=== PATIENT | female | born 1970 | race Asian ===

== ENCOUNTER 2017-11-14 19:45 | Emergency (ER) | payer BC, OTHER ==
[2017-11-14] MEDS: IOHEXOL 300MG/ML 150 ML BTL (20:54)
[2017-11-14] MEDS: SOD CHLORIDE 0.9% 100 ML (20:54)
[2017-11-14 21:06] LABS: ADD MAN DIFF? NO
[2017-11-14 21:09] LABS: BASOPHIL # 0.1 10^3/ul (0.0-0.1); BASOPHILS % 0.5 % (0.0-2.0); EOSINOPHILS # 0.3 10^3/ul (0.0-0.5); EOSINOPHILS % 2.1 % (0.0-7.0); HEMATOCRIT 41.8 % (37.0-47.0); HEMOGLOBIN 13.9 g/dl (12.0-16.0); LYMPHOCYTES # 2.9 10^3/ul (0.8-2.9); LYMPHOCYTES % 23.9 % (15.0-51.0); MEAN CORPUSCULAR HEMOGLOBIN 29.7 pg (29.0-33.0); MEAN CORPUSCULAR HGB CONC 33.3 g/dl (32.0-37.0); MEAN CORPUSCULAR VOLUME 89.3 fl (82.0-101.0); MEAN PLATELET VOLUME 9.8 fl (7.4-10.4); MONOCYTE # 0.8 10^3/ul (0.3-0.9); MONOCYTES % 6.4 % (0.0-11.0); NEUTROPHIL # 8.2 10^3/ul (1.6-7.5); NEUTROPHILS % 66.9 % (39.0-77.0); PLATELET COUNT 254 10^3/UL (140-415); RED BLOOD COUNT 4.68 10^6/ul (4.20-5.40); RED CELL DISTRIBUTION WIDTH 13.2 % (11.5-14.5)
[2017-11-14 21:09] LABS: WHITE BLOOD COUNT 12.3 10^3/ul (4.8-10.8)
[2017-11-14] MEDS: SOD CHLORIDE 0.9% 1,000 ML IV (21:25)
[2017-11-14 21:31] LABS: ALANINE AMINOTRANSFERASE 58 IU/L (13-69); ALKALINE PHOSPHATASE 113 IU/L (42-121); ANION GAP 19 (8-16); ASPARTATE AMINO TRANSFERASE 40 IU/L (15-46); BILIRUBIN,INDIRECT 0.1 mg/dl (0-1.1); BILIRUBIN,TOTAL 0.1 mg/dl (0.2-1.3); BLOOD UREA NITROGEN 18 mg/dl (7-20); CALCIUM 9.9 mg/dl (8.4-10.2); CARBON DIOXIDE 25 mmol/L (21-31); CHLORIDE 104 mmol/L (97-110); CREATININE 0.82 mg/dl (0.44-1.00); GLUCOSE 106 mg/dl (70-220); POTASSIUM 4.2 mmol/L (3.5-5.1); SODIUM 144 mmol/L (135-144); TOTAL PROTEIN 9.1 g/dl (6.1-8.1)
[2017-11-14 21:41] LABS: TROPONIN-I < 0.012 ng/ml (0.00-0.12)
[2017-11-14 21:54] LABS: INR 0.93; PROTIME 12.5 Sec (11.9-14.9)
[2017-11-14 21:55] LABS: PARTIAL THROMBOPLASTIN TIME 29.4 Sec (25.0-35.0)
[2017-11-15] MEDS: KETOROLAC 30 MG INJ IV
== END 2017-11-15 00:09 | disposition home or self-care (01) ==
LOC: E/R 11-15 00:09
DX: M54.2 Cervicalgia (principal); R07.9 Chest pain, unspecified; M54.9 Dorsalgia, unspecified; M79.605 Pain in left leg; M25.522 Pain in left elbow; I10 Essential (primary) hypertension; R51 Headache
CPT/HCPCS: 70450; 71260; 72125; 74177; 80048; 80076; 81025; 84484; 85025; 85610; 85730; 96374; 99291-25